=== PATIENT | male | born 1980 | race Caucasian/White ===

== ENCOUNTER 2021-09-18 01:39 | Emergency (ER) | payer SELFPAY ==
[2021-09-18] MEDS ORDERED: Morphine 4 MG/ML Syringe IVPUSH ONE (03:11)
--- NOTE | 2021-09-18 03:35 | EDM.PDOC ---
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 Patient reports he has had pain umbilical pain for the past several months. He reports is generally mild in nature. He states he feels a lump that feels like a hernia in his umbilicus area. Patient states normally is able to push it back in. Patient states today he was left in something heavy at work and felt it become increasingly painful. Patient denies any associated fevers, chills, nausea, vomiting. Patient reports constipation today but is still passing flatus. Patient has not seen a surgeon or had any prior evaluation for this. No interventions performed prior to arrival. - Related Data Allergies Allergy/AdvReac Type Severity Reaction Status Date / Time No Known Allergies Allergy Verified 03/26/19 20:59 Home Meds: Home Meds Amoxicillin/Potassium Clav [Augmentin 875-125 Tablet] 1 tab PO Q12H #20 tablet 03/26/19 [Rx] Past Medical History Cardiovascular History: Reports: None Respiratory History: Reports: None Gastrointestinal History: Reports: None Genitourinary History: Reports: None Neurological History: Reports: None Psychiatric History: Reports: None Endocrine/Metabolic History: Reports: Hypothyroidism, Obesity/BMI 30+ Hematologic History: Reports: None Immunologic History: Reports: None Oncologic (Cancer) History: Reports: None Dermatologic History: Reports: None - Infectious Disease History Infectious Disease History: Reports: None - Past Surgical History Head Surgeries/Procedures: Reports: None HEENT Surgical History: Reports: Oral Surgery Musculoskeletal Surgical History: Reports: Other (See Below) Other Musculoskeletal Surgeries/Procedures:: Pt states he had a surgery on his big toe when he was a kid. 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) ED ROS GENERAL - Review of Systems Review Of Systems: See Below Free Text/Narrative/Comment: In addition to that documented in the HPI above, the additional ROS was obtained : Constitutional: Denies fevers or chills Eyes: Denies vision changes ENMT: Denies sore throat CV: Denies chest pain Resp: Denies SOB GI: Denies vomiting or diarrhea : Denies painful urination MSK: Denies recent trauma Skin: Denies new rashes Neuro: Denies new numbness or tingling or weakness Endocrine: Denies unexpected weight loss Heme: Denies bleeding disorders ED EXAM, GI/ABD - Physical Exam Exam: See Below Text/Narrative:: I have reviewed the triage vital signs Const: Well nourished, well developed, appears stated age Eyes: Pupils Equal and reactive to light bilaterally, no conjunctival injection HENT: No signs of trauma or swelling, Neck supple without meningismus CV: Regular Rate Rhythm, Warm, well-perfused extremities RESP: Unlabored respiratory effort GI: Mass in the umbilicus. There is no skin changes. The mass is soft to the touch. It is tender. The remainder of the abdomen is soft, non-tender, non- distended, no masses MSK: No gross deformities appreciated Skin: Warm, dry. 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 Sensation and motor function of extremities grossly intact. Psych: Appropriate mood and affect. Course - Vital Signs Last Recorded V/S: Last Vital Signs Temp 36.0 C L 09/18/21 02:50 Pulse 100 09/18/21 02:50 Resp 18 09/18/21 02:50 BP 138/90 09/18/21 02:50 Pulse Ox 97 09/18/21 02:50 - Orders/Labs/Meds Orders: Active Orders 24 hr Category Date Time Status Abdomen Pelvis w Cont [CT] Stat Exams 09/18/21 03:32 Taken Labs: Laboratory Tests 09/18/21 09/18/21 09/18/21 Range/Units 03:20 03:20 03:20 WBC 7.93 (4.23-9.07) K/mm3 RBC 4.86 (4.63-6.08) M/mm3 Hgb 14.3 (13.7-17.5) gm/dl Hct 43.2 (40.1-51.0) % MCV 88.9 (79.0-92.2) fl MCH 29.4 (25.7-32.2) pg MCHC 33.1 (32.2-35.5) g/dl RDW Std Deviation 44.4 H (35.1-43.9) fL Plt Count 144 L (163-337) K/mm3 MPV 10.7 (9.4-12.3) fl Neut % (Auto) 62.3 (34.0-67.9) % Lymph % (Auto) 24.8 (21.8-53.1) % Sebastian % (Auto) 8.8 (5.3-12.2) % Eos % (Auto) 3.3 (0.8-7.0) Baso % (Auto) 0.5 (0.1-1.2) % Neut # (Auto) 4.94 (1.78-5.38) K/mm3 Lymph # (Auto) 1.97 (1.32-3.57) K/mm3 Sebastian # (Auto) 0.70 (0.30-0.82) K/mm3 Eos # (Auto) 0.26 (0.04-0.54) K/mm3 Baso # (Auto) 0.04 (0.01-0.08) K/mm3 Sodium 141 (136-145) mEq/L Potassium 3.6 (3.5-5.1) mEq/L Chloride 103 (98-107) mEq/L Carbon Dioxide 27 (21-32) mEq/L Anion Gap 14.6 (5-15) BUN 20 H (7-18) mg/dL Creatinine 1.0 (0.7-1.3) mg/dL Est Cr Clr Drug Dosing 102.49 mL/min Estimated GFR (MDRD) > 60 (>60) mL/min BUN/Creatinine Ratio 20.0 H (14-18) Glucose 124 H (70-99) mg/dL Lactic Acid 0.7 (0.4-2.0) mmol/L Calcium 8.3 L (8.5-10.1) mg/dL Total Bilirubin 0.4 (0.2-1.0) mg/dL AST 25 (15-37) U/L ALT 52 (16-63) U/L Alkaline Phosphatase 94 (46-116) U/L Total Protein 6.6 (6.4-8.2) g/dl Albumin 3.2 L (3.4-5.0) g/dl Globulin 3.4 gm/dL Albumin/Globulin Ratio 0.9 L (1-2) Meds: Medications Discontinued Medications Generic Name Dose Route Start Last Admin Trade Name Claudia PRN Reason Stop Dose Admin Iopamidol 50 ml 09/18/21 03:52 09/18/21 04:16 Iopamidol 612 Mg/Ml 50 Ml Sdv IVPUSH 09/18/21 03:53 50 ml ONETIME ONE Administration Iopamidol 100 ml 09/18/21 03:52 09/18/21 04:16 Iopamidol 612 Mg/Ml 100 Ml Bottle IVPUSH 09/18/21 03:53 100 ml ONETIME ONE Administration Morphine Sulfate 4 mg 09/18/21 03:11 09/18/21 03:25 Morphine 4 Mg/Ml Syringe IVPUSH 09/18/21 03:12 4 mg ONETIME ONE Administration Sodium Chloride 10 ml 09/18/21 03:52 09/18/21 04:16 Sodium Chloride 0.9% 10 Ml Sdv FLUSH 09/18/21 03:53 10 ml ONETIME ONE Administration Departure - Departure Time of Disposition: 05:31 Disposition: Home, Self-Care 01 Clinical Impression: Umbilical hernia - Discharge Information Instructions: Umbilical Hernia, Adult Referrals: PCP,None [Primary Care Provider] - Forms: ED Department Discharge, ED Return to Work/School Form Additional Instructions: Please follow up with Dr. Doherty in her surgery clinic today. Sepsis Event Note (ED) - Evaluation Sepsis Screening Result: No Definite Risk - Focused Exam Vital Signs: Vital Signs Temp Pulse Resp BP Pulse Ox 09/18/21 02:50 36.0 C L 100 18 138/90 97 - My Orders Last 24 Hours: My Active Orders 09/18/21 03:32 Abdomen Pelvis w Cont [CT] Stat - Assessment/Plan Last 24 Hours: My Active Orders 09/18/21 03:32 Abdomen Pelvis w Cont [CT] Stat Assessment:: Patient 41-year-old male presenting with umbilical pain. No evidence of incarcerated hernia on examination. Laboratory studies do not show any signs of infarction. CT scan shows evidence of umbilical hernia with possible omental infarction. Pain improved with morphine in the emergency room. Case is discussed with on-call general surgeon, Dr. Head, who states that the patient can follow-up in her office later today. Patient given instructions for no heavy lifting. Return precautions given as usual. Patient agrees with plan of care.
[2021-09-18] MEDS ORDERED: Iopamidol 612 MG/ML 100 ML Bottle IVPUSH ONE (03:52)
[2021-09-18] MEDS ORDERED: Iopamidol 612 MG/ML 50 ML SDV IVPUSH ONE (03:52)
[2021-09-18] MEDS ORDERED: Sodium Chloride 0.9% 10 ML SDV FLUSH ONE (03:52)
--- NOTE | 2021-09-18 10:56 | CT ---
CT abdomen and pelvis Technique: Multiple axial sections were obtained from above the dome of the diaphragm inferiorly through the pubic symphysis. Intravenous contrast was utilized. No oral contrast has been given. Delayed images were obtained through the pelvis. Reconstructed coronal and sagittal images were obtained. Comparison: No prior CT abdomen or pelvis study is available. Findings: Patchy areas of increased density are seen within both lower lungs which is worse on the right side. Please correlate if patient has any symptoms of prior pneumonia. Liver shows diffuse fatty infiltration. Gallbladder contains no calcified gallstones. Spleen size is normal. Adrenal glands show no nodule. Pancreas shows no discrete abnormality. Kidneys show symmetric contrast enhancement with no hydronephrosis or mass being seen. Fat-containing umbilical hernia is noted which show some increased density raising the possibility of infarct of this fat. Abdominal aorta shows no aneurysm. No retroperitoneal adenopathy is seen. No mesenteric abnormalities are seen. No pelvic mass or adenopathy is seen. Delayed images show contrast within the distal ureters as well as within the bladder. Bone window settings show disc space narrowing at L3-4 through L5-S1. Vacuum disc phenomena is seen within the L4-5 and L5-S1 disc. Mild scattered endplate osteophytes are seen within the spine. Appendix is seen which is normal. No free fluid or other inflammatory change is seen. Impression: 1. Patchy increased density within both lung bases which is worse on the right side. Please exclude any symptoms to suggest scattered areas of pneumonia. 2. Fat-containing umbilical hernia which shows evidence of increased density raising the possibility of infarct within the fat. 3. Fatty infiltration within the liver. 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
== END 2021-09-18 06:09 | disposition home or self-care (01) ==
LOC: JD.ED 01:39
DX: K42.9 Umbilical hernia without obstruction or gangrene (principal); E66.9 Obesity, unspecified; Z68.37 Body mass index [BMI] 37.0-37.9, adult
CPT/HCPCS: 36415; 74177; 80053; 83605; 85025; 96374; 99284; J2270; Q9967